=== PATIENT | male | born 1940 | race Asian ===

== ENCOUNTER → 2021-06-01 | Outpatient (CLI) | payer MEDICARE ==
[~2021-06-01] MED LIST: HYDR1TAB94 PO; MINOCYCLINE HC PO; SENN187 PO; TIMO.25OPS BOTHEYES; XALATAN2.5 ML BOTHEYES
== END | disposition home or self-care (01) ==
LOC: LAB SHORT 11:02
DX: L57.0 Actinic keratosis (principal); L90.9 Atrophic disorder of skin, unspecified; L81.4 Other melanin hyperpigmentation
CPT/HCPCS: 88305; 88342

== ENCOUNTER 2021-08-27 10:44 | Day surgery (SDC) | payer MEDICARE ==
[~2021-08-27] VITALS: Ht 167 cm; Wt 66.6 kg
[~2021-08-27 10:44] MED LIST changes: +Acetyl L-Carni500 MG PO; +BETIMOL5 ML BOTHEYES; +CHOLP PO; +Cranberry425 MG PO; +ERGO50000 PO; +LATA.005SO BOTHEYES; +MULTI-VITAMIN1 EAC2 PO; +Natrol Alpha 3300 MG PO; +RESVERATROL250 MG PO; +UBID100 PO
--- NOTE | 2021-08-27 11:55 | NUR ---
Ambulatory in Day Surgery History, Chart, Medications and Allergies reviewed before start of procedure.Patient confirms NPO status and agrees with scheduled surgery. Surgical site prepped with 2% Chlorhexidine cloth wipe. Lungs clear T/O to Auscultation. Patient States Post-Procedure ride home has been arranged WITH . [place] RING GIVEN TO . BILATERAL HEARNING AIDS IN PLACE
--- NOTE | 2021-08-27 14:09 | NUR ---
PT AWAKE AND ORIENTED. INCISIONS X3 TO ABDOMEN WITH DERMABOND IN PLACE ARE CDI. PT PROVIDED WATER. PT DOES NOT WANT ANY MEDICATION FOR PAIN 09/27. EDUCATED PT ABOUT PAIN MANAGEMENT.
--- NOTE | 2021-08-27 15:13 | NUR ---
Patient up to Ambulate independently. Gait steady. Discharge instructions reviewed with patient AND . Patient verbalizes understanding. Copy given to patient to take home. Discharged via wheelchair to private car for ride home WITH . PT HAS BILATERAL HEARING AIDS IN PLACE. PRESCRIPTION PAIN MEDICATION IN DISCHARGE FOLDER WITH .DERMABOND REMAINS INTACT NO DRAINAGE. PT DENIES NAUSEA AND NUMBNESS IN HIS LOWER EXTREMITIES AND IS ABLE TO AMBULATE STEADILY.
--- NOTE | 2021-08-30 14:47 | NUR ---
08/30/21 1447 Mayra Zaman VERIFICATIONS: EDIT CHART.
== END 2021-08-27 15:15 | disposition home or self-care (01) ==
LOC: ORSCMMR 10:44
PROVIDERS: Surgery
PROC: 8E0W4CZ Robotic Assisted Procedure of Trunk Region, Percutaneous Endoscopic Approach (ICD-10-PCS; principal; 2021-08-27 12:30)
PROC: 0YU54JZ Supplement Right Inguinal Region with Synthetic Substitute, Percutaneous Endoscopic Approach (ICD-10-PCS; principal; 2021-08-27 12:30)
DX: K40.90 Unilateral inguinal hernia, without obstruction or gangrene, not specified as recurrent (principal); I10 Essential (primary) hypertension; G47.33 Obstructive sleep apnea (adult) (pediatric); Z87.891 Personal history of nicotine dependence; Z79.899 Other long term (current) drug therapy
CPT/HCPCS: 49650; S2900; A9270; C1781; J0690; J1100; J1885; J2405; J2704; J3010; J7120